=== PATIENT | male | born 1940 | race Caucasian/White ===

== ENCOUNTER 2017-11-03 17:49 | Inpatient (IN) | payer MEDICARE, OTHER ==
[2017-11-03] MEDS: FAMOTIDINE 20 MG INJ IV (01:00)
[2017-11-03] MEDS: PROPOFOL 100 ML IV ×2 (01:00→18:23)
[~2017-11-03 17:49] MED LIST: ETOMIDATE 20 MG INJ; SUCCINYLCHOLINE CHLORIDE 100 MG/5 ML SYG IV
[2017-11-03 18:11] LABS: ADD MAN DIFF? NO
[2017-11-03 18:16] LABS: ABNORMAL IP MESSAGE 1; BASOPHILS % 0.2 % (0.0-2.0); HEMATOCRIT 40.4 % (42.0-52.0); HEMOGLOBIN 14.3 g/dl (14.0-18.0); LYMPHOCYTES % 4.4 % (15.0-51.0); MEAN CORPUSCULAR HEMOGLOBIN 30.6 pg (29.0-33.0); MEAN CORPUSCULAR HGB CONC 35.4 g/dl (32.0-37.0); MEAN CORPUSCULAR VOLUME 86.5 fl (82.0-101.0); MEAN PLATELET VOLUME 9.5 fl (7.4-10.4); MONOCYTE # 1.3 10^3/ul (0.3-0.9); MONOCYTES % 5.7 % (0.0-11.0); NEUTROPHIL # 20.6 10^3/ul (1.6-7.5); PLATELET COUNT 341 10^3/UL (140-415); POSITIVE DIFF @See below; RED BLOOD COUNT 4.67 10^6/ul (4.70-6.10); RED CELL DISTRIBUTION WIDTH 12.9 % (11.5-14.5)
[2017-11-03 18:16] LABS: WHITE BLOOD COUNT 23.2 10^3/ul (4.8-10.8)
[2017-11-03] MEDS: MIDAZOLAM (DRIP) 50 mg/50 mL 50 ML IV (18:22)
[2017-11-03] MEDS: SODIUM CHLORIDE 0.9% 1L BAG IV* (18:23)
[2017-11-03 18:29] LABS: ADD UMIC YES; UR ASCORBIC ACID NEGATIVE (NEGATIVE); UR BACTERIA MODERATE /HPF (NONE SEEN); UR BILIRUBIN (Dip) NEGATIVE (NEGATIVE); UR BLOOD (Dip) 1+ mg/dL (NEGATIVE); UR CLARITY TURBID (CLEAR); UR COLOR AMBER (YELLOW); UR GLUCOSE (Dip) 1+ mg/dL (NEGATIVE); UR KETONES (Dip) TRACE mg/dL (NEGATIVE); UR LEUKOCYTE ESTERASE (Dip) 2+ Leu/ul (NEGATIVE); UR NITRITE (Dip) POSITIVE (NEGATIVE); UR RBC > 182 /HPF (0-5); UR SPECIFIC GRAVITY (Dip) 1.011 (1.003-1.030); UR TOTAL PROTEIN (Dip) 2+ mg/dl (NEGATIVE); UR UROBILINOGEN (Dip) NEGATIVE (NEGATIVE); UR WBC > 182 /HPF (0-5)
[2017-11-03 18:30] LABS: INR 1.09; PARTIAL THROMBOPLASTIN TIME 27.9 Sec (23.0-35.0); PROTIME 14.3 Sec (11.9-14.9); PT RATIO 1.1
[2017-11-03] MEDS: LORAZEPAM 2 MG INJ IV (18:30)
[2017-11-03] MEDS: ACETAMINOPHEN 650 MG SUPP PR (18:39)
[2017-11-03] MEDS: CEFTRIAXONE 1 GM/50 ML (PMX) 50 ML IVPB (18:42)
[2017-11-03 18:47] LABS: ANION GAP 17 (8-16); BLOOD UREA NITROGEN 29 mg/dl (7-20); CARBON DIOXIDE 23 mmol/L (21-31); CHLORIDE 105 mmol/L (97-110); CREATININE 1.26 mg/dl (0.61-1.24); GLUCOSE 236 mg/dl (70-220); LIPASE 297 U/L (23-300); POTASSIUM 3.5 mmol/L (3.5-5.1); SODIUM 141 mmol/L (135-144)
[2017-11-03 18:49] LABS: TROPONIN-I 0.045 ng/ml (0.000-0.120)
[2017-11-03 18:55] LABS: LACTIC ACID 3.2 mmol/L (0.5-2.0)
[2017-11-03 19:21] LABS: AADO2 Arterial 289.7 mmHg (7.0-24.0); Allen Test ACCEPTAB; Arterial Base Excess -2.3 mmol/L (-3.0-3); Arterial Blood Gas Oxygen Sat 99.3 mmHG (95.0-100.0); Arterial COHb 0.3 % (0.0-3.0); Arterial Fraction of Oxyhgb 98.7 % (93.0-99.0); Arterial HCO3 18.8 mmol/L (22.0-26.0); Arterial MetHb 0.3 % (0.0-1.5); Arterial Total Hemglobin 13.8 g/dl (12.0-18.0); Arterial pCO2 23.6 mmhg (35-45); MODE VENT - AC; Site Right Radial
[2017-11-03] MEDS ORDERED: LORAZEPAM 2 MG INJ IV (19:30)
[2017-11-03] MEDS ORDERED: NACL 0.9% 3 ML SYG IV (19:30)
[2017-11-03] MEDS ORDERED: VANCOMYCIN IV PER PHARMACY XX (19:30)
[2017-11-03] MEDS ORDERED: ONDANSETRON 4 MG INJ IV (19:30)
[2017-11-03] MEDS ORDERED: HYDROCODONE/APAP (5/325) TAB PO (19:30)
[2017-11-03] MEDS ORDERED: morphine 2 MG INJ IV (19:30)
[2017-11-03] MEDS: VANCOMYCIN 1 GM (PMX) 250 ML IVPB (19:50)
[2017-11-03] MEDS: INSULIN ASPART [NOVOLOG] 3 ML PEN SC (21:00)
[2017-11-03 21:23] LABS: LACTIC ACID 4.7 mmol/L (0.5-2.0)
[2017-11-03] MEDS ORDERED: DEXTROSE 50% 50 ML SYRINGE IV ×2 (21:30)
[2017-11-03] MEDS ORDERED: GLUCOSE GEL 15 GRAM TUBE BUCCAL (21:30)
[2017-11-03] MEDS ORDERED: GLUCAGON 1 MG INJ IM (21:30)
[2017-11-03] MEDS ORDERED: GLUCOSE GEL 15 GRAM TUBE PO ×2 (21:30)
[2017-11-03] MEDS: VANCOMYCIN 1.25 GM in SOD CHLORIDE 0.9% 250 ML IVPB ×2 (22:43→23:04)
[2017-11-03] MEDS: NORepinephrine 8MG/250 ML (PMX 250 ML IV (23:09)
[2017-11-03 23:30] LABS: LACTIC ACID 1.8 mmol/L (0.5-2.0)
[2017-11-03] MEDS: SOD CHLORIDE 0.9% 1,000 ML IV (23:58)
[2017-11-04] MEDS: PIPER-TAZO 3.375 GM IV (PMX) 100 ML IVPB ×4 (01:26→17:51)
[2017-11-04] MEDS: PROPOFOL 100 ML IV ×2 (01:28→09:03)
[2017-11-04] MEDS ORDERED: ACCU-CHEK XX (02:00)
[2017-11-04] MEDS: VANCOMYCIN 500MG/NS (PMX) 100 ML IVPB (02:05)
[2017-11-04] MEDS: INSULIN ASPART [NOVOLOG] 3 ML PEN SC ×6 (02:10→21:00)
[2017-11-04] MEDS: FENTAnyl (DRIP) 1000 mcg/100mL 100 ML IV (02:26)
[2017-11-04 05:14] LABS: ADD MAN DIFF? NO
[2017-11-04 05:19] LABS: WHITE BLOOD COUNT 22.4 10^3/ul (4.8-10.8)
[2017-11-04 05:19] LABS: ABNORMAL IP MESSAGE 1; BASOPHIL # 0.1 10^3/ul (0.0-0.1); BASOPHILS % 0.2 % (0.0-2.0); HEMATOCRIT 31.9 % (42.0-52.0); HEMOGLOBIN 10.8 g/dl (14.0-18.0); LYMPHOCYTES # 2.6 10^3/ul (0.8-2.9); LYMPHOCYTES % 11.8 % (15.0-51.0); MEAN CORPUSCULAR HEMOGLOBIN 30.5 pg (29.0-33.0); MEAN CORPUSCULAR HGB CONC 33.9 g/dl (32.0-37.0); MEAN CORPUSCULAR VOLUME 90.1 fl (82.0-101.0); MEAN PLATELET VOLUME 9.7 fl (7.4-10.4); MONOCYTE # 1.7 10^3/ul (0.3-0.9); MONOCYTES % 7.4 % (0.0-11.0); NEUTROPHIL # 17.9 10^3/ul (1.6-7.5); NEUTROPHILS % 79.9 % (39.0-77.0); PLATELET COUNT 267 10^3/UL (140-415); POSITIVE DIFF @See below; RED BLOOD COUNT 3.54 10^6/ul (4.70-6.10); RED CELL DISTRIBUTION WIDTH 13.6 % (11.5-14.5)
[2017-11-04 05:35] LABS: HEMOGLOBIN A1C 6.7 % (0-5.9)
[2017-11-04 05:44] LABS: ALANINE AMINOTRANSFERASE 55 IU/L (13-69); ALBUMIN 2.7 g/dl (3.3-4.9); ALBUMIN/GLOBULIN RATIO 0.87; ALKALINE PHOSPHATASE 33 IU/L (42-121); ANION GAP 14 (8-16); ASPARTATE AMINO TRANSFERASE 34 IU/L (15-46); BILIRUBIN,INDIRECT 0.5 mg/dl (0-1.1); BILIRUBIN,TOTAL 0.5 mg/dl (0.2-1.3); BLOOD UREA NITROGEN 27 mg/dl (7-20); CALCIUM 7.9 mg/dl (8.4-10.2); CARBON DIOXIDE 20 mmol/L (21-31); CHLORIDE 112 mmol/L (97-110); CREATININE 1.28 mg/dl (0.61-1.24); GLUCOSE 223 mg/dl (70-220); MAGNESIUM 1.2 mg/dl (1.7-2.5); POTASSIUM 3.1 mmol/L (3.5-5.1); SODIUM 143 mmol/L (135-144); TOTAL PROTEIN 5.8 g/dl (6.1-8.1)
[2017-11-04] MEDS: POTASSIUM CHLORIDE 100 ML IVPB (06:36)
[2017-11-04] MEDS: MAGNESIUM SULFATE 4 GM/100 ML 100 ML IVPB (07:35)
[2017-11-04 08:59] LABS: AADO2 Arterial 98.4 mmHg (7.0-24.0); Allen Test ACCEPTAB; Arterial Base Excess -5.7 mmol/L (-3.0-3); Arterial Blood Gas Oxygen Sat 97.7 mmHG (95.0-100.0); Arterial COHb 0.3 % (0.0-3.0); Arterial Fraction of Oxyhgb 97.2 % (93.0-99.0); Arterial HCO3 18.7 mmol/L (22.0-26.0); Arterial MetHb 0.2 % (0.0-1.5); Arterial pCO2 33.1 mmhg (35-45); MODE VENT - AC; Site Right Radial
[2017-11-04] MEDS: RIVAROXABAN 15 MG TABLET PO ×2 (09:03→16:39)
[2017-11-04] MEDS: FAMOTIDINE 20 MG INJ IV ×2 (09:03→21:07)
[2017-11-04] MEDS: SOD CHLORIDE 0.9% 1,000 ML IV ×2 (09:26→17:53)
[2017-11-04] MEDS: DUTASTERIDE 0.5 MG CAP PO ×2 (10:00→11:08)
[2017-11-04] MEDS: DIGOXIN 0.25 MG TAB PO (12:49)
[2017-11-04] MEDS: ENTACAPONE 200 MG TAB PO ×2 (12:49→21:07)
[2017-11-04] MEDS ORDERED: PROPRANOLOL 20 MG TAB PO (21:00)
[2017-11-04] MEDS: TAMSULOSIN (SR) 0.4 MG CAP PO (21:07)
[2017-11-04] MEDS: PRAMIPEXOLE 0.125 MG TAB PO (21:07)
[2017-11-05] MEDS: PIPER-TAZO 3.375 GM IV (PMX) 100 ML IVPB ×4 (00:11→17:48)
[2017-11-05] MEDS: FENTAnyl (DRIP) 1000 mcg/100mL 100 ML IV ×2 (00:12→11:57)
[2017-11-05] MEDS: INSULIN ASPART [NOVOLOG] 3 ML PEN SC ×6 (00:24→20:59)
[2017-11-05] MEDS: ACETAMINOPHEN 325 MG TAB PO (00:56)
[2017-11-05 05:05] LABS: AADO2 Arterial 116.5 mmHg (7.0-24.0); Allen Test ACCEPTAB; Arterial Base Excess -3.8 mmol/L (-3.0-3); Arterial Blood Gas Oxygen Sat 97.1 mmHG (95.0-100.0); Arterial COHb 0.3 % (0.0-3.0); Arterial Fraction of Oxyhgb 96.6 % (93.0-99.0); Arterial HCO3 20.1 mmol/L (22.0-26.0); Arterial MetHb 0.2 % (0.0-1.5); MODE VENT - AC; Site Left Radial
[2017-11-05 05:08] LABS: ADD MAN DIFF? NO
[2017-11-05 05:17] LABS: WHITE BLOOD COUNT 16.6 10^3/ul (4.8-10.8)
[2017-11-05 05:17] LABS: BASOPHILS % 0.2 % (0.0-2.0); EOSINOPHILS # 0.1 10^3/ul (0.0-0.5); EOSINOPHILS % 0.7 % (0.0-7.0); HEMATOCRIT 28.7 % (42.0-52.0); HEMOGLOBIN 9.8 g/dl (14.0-18.0); LYMPHOCYTES % 12.1 % (15.0-51.0); MEAN CORPUSCULAR HEMOGLOBIN 30.4 pg (29.0-33.0); MEAN CORPUSCULAR HGB CONC 34.1 g/dl (32.0-37.0); MEAN CORPUSCULAR VOLUME 89.1 fl (82.0-101.0); MEAN PLATELET VOLUME 9.6 fl (7.4-10.4); MONOCYTE # 1.3 10^3/ul (0.3-0.9); MONOCYTES % 7.7 % (0.0-11.0); NEUTROPHILS % 78.5 % (39.0-77.0); PLATELET COUNT 231 10^3/UL (140-415); RED BLOOD COUNT 3.22 10^6/ul (4.70-6.10); RED CELL DISTRIBUTION WIDTH 14.2 % (11.5-14.5)
[2017-11-05 05:33] LABS: LACTIC ACID 0.9 mmol/L (0.5-2.0)
[2017-11-05 05:38] LABS: ANION GAP 11 (8-16); BLOOD UREA NITROGEN 21 mg/dl (7-20); CALCIUM 7.6 mg/dl (8.4-10.2); CARBON DIOXIDE 21 mmol/L (21-31); CHLORIDE 115 mmol/L (97-110); CREATININE 1.02 mg/dl (0.61-1.24); GLUCOSE 122 mg/dl (70-220); MAGNESIUM 2.1 mg/dl (1.7-2.5); PHOSPHORUS 2.4 mg/dl (2.5-4.9); SODIUM 144 mmol/L (135-144)
[2017-11-05 05:42] LABS: POTASSIUM 2.9 mmol/L (3.5-5.1)
[2017-11-05] MEDS ORDERED: POTASSIUM CHLORIDE 20 MEQ in SOD CHLORIDE 0.9% 1,000 ML IV (05:48)
[2017-11-05] MEDS: POTASSIUM CHLORIDE 50 ML IVPB ×2 (06:31→08:12)
[2017-11-05] MEDS: NS + KCL 20 MEQ 1,000 ML IV ×2 (07:05→23:50)
[2017-11-05] MEDS: FAMOTIDINE 20 MG INJ IV ×2 (08:51→21:06)
[2017-11-05] MEDS: ENTACAPONE 200 MG TAB PO ×3 (08:51→21:00)
[2017-11-05] MEDS: DUTASTERIDE 0.5 MG CAP PO (08:52)
[2017-11-05] MEDS: RIVAROXABAN 15 MG TABLET PO ×3 (08:52→17:35)
[2017-11-05] MEDS: SODIUM PHOSPHATE 20 MEQ in SOD CHLORIDE 0.9% 250 ML IVPB (09:44)
[2017-11-05] MEDS: DIGOXIN 0.25 MG TAB PO (12:58)
[2017-11-05 20:27] LABS: AADO2 Arterial 149.9 mmHg (7.0-24.0); Allen Test ACCEPTAB; Arterial Base Excess -3.9 mmol/L (-3.0-3); Arterial Blood Gas Oxygen Sat 97.1 mmHG (95.0-100.0); Arterial COHb 0.3 % (0.0-3.0); Arterial Fraction of Oxyhgb 96.6 % (93.0-99.0); Arterial MetHb 0.2 % (0.0-1.5); Arterial Total Hemglobin 10.8 g/dl (12.0-18.0); Arterial pCO2 27.8 mmhg (35-45); MODE NASAL CANNULA; Site Right Radial
[2017-11-05] MEDS: PRAMIPEXOLE 0.125 MG TAB PO (21:00)
[2017-11-05] MEDS: TAMSULOSIN (SR) 0.4 MG CAP PO (21:00)
[2017-11-06] MEDS: PIPER-TAZO 3.375 GM IV (PMX) 100 ML IVPB ×4 (00:38→17:21)
[2017-11-06] MEDS: INSULIN ASPART [NOVOLOG] 3 ML PEN SC ×6 (00:55→22:22)
[2017-11-06 05:23] LABS: ADD MAN DIFF? NO
[2017-11-06 05:26] LABS: BASOPHILS % 0.2 % (0.0-2.0); EOSINOPHILS # 0.1 10^3/ul (0.0-0.5); EOSINOPHILS % 1.3 % (0.0-7.0); HEMOGLOBIN 8.8 g/dl (14.0-18.0); LYMPHOCYTES # 1.4 10^3/ul (0.8-2.9); LYMPHOCYTES % 12.6 % (15.0-51.0); MEAN CORPUSCULAR HEMOGLOBIN 30.3 pg (29.0-33.0); MEAN CORPUSCULAR HGB CONC 33.8 g/dl (32.0-37.0); MEAN CORPUSCULAR VOLUME 89.7 fl (82.0-101.0); MEAN PLATELET VOLUME 9.4 fl (7.4-10.4); MONOCYTE # 0.9 10^3/ul (0.3-0.9); MONOCYTES % 8.3 % (0.0-11.0); NEUTROPHIL # 8.4 10^3/ul (1.6-7.5); NEUTROPHILS % 76.9 % (39.0-77.0); PLATELET COUNT 220 10^3/UL (140-415); RED CELL DISTRIBUTION WIDTH 13.9 % (11.5-14.5)
[2017-11-06 05:48] LABS: LACTIC ACID 1.3 mmol/L (0.5-2.0)
[2017-11-06 06:06] LABS: ANION GAP 9 (8-16); BLOOD UREA NITROGEN 13 mg/dl (7-20); CALCIUM 7.8 mg/dl (8.4-10.2); CARBON DIOXIDE 24 mmol/L (21-31); CHLORIDE 115 mmol/L (97-110); CREATININE 0.82 mg/dl (0.61-1.24); GLUCOSE 170 mg/dl (70-220); POTASSIUM 3.3 mmol/L (3.5-5.1); SODIUM 145 mmol/L (135-144)
[2017-11-06 09:17] LABS: AADO2 Arterial 65.5 mmHg (7.0-24.0); Allen Test ACCEPTAB; Arterial Base Excess -0.7 mmol/L (-3.0-3); Arterial Blood Gas Oxygen Sat 94.4 mmHG (95.0-100.0); Arterial COHb 0.3 % (0.0-3.0); Arterial HCO3 22.3 mmol/L (22.0-26.0); Arterial MetHb 0.1 % (0.0-1.5); Arterial Total Hemglobin 10.6 g/dl (12.0-18.0); Arterial pCO2 31.1 mmhg (35-45); MODE NASAL CANNULA; Site Left Radial
[2017-11-06] MEDS: DUTASTERIDE 0.5 MG CAP PO (09:46)
[2017-11-06] MEDS: ENTACAPONE 200 MG TAB PO ×3 (09:46→20:45)
[2017-11-06] MEDS: RIVAROXABAN 15 MG TABLET PO ×2 (09:47→17:21)
[2017-11-06] MEDS: FAMOTIDINE 20 MG INJ IV ×2 (09:47→20:47)
[2017-11-06] MEDS: NS + KCL 20 MEQ 1,000 ML IV ×2 (10:51→17:23)
[2017-11-06] MEDS: DIGOXIN 0.25 MG TAB PO (12:17)
[2017-11-06] MEDS: TAMSULOSIN (SR) 0.4 MG CAP PO (20:45)
[2017-11-06] MEDS: PRAMIPEXOLE 0.125 MG TAB PO (20:45)
[2017-11-06] MEDS: INSULIN GLARGINE [LANTus] (100 UNITS/ML) SYG SC (20:48)
[2017-11-06] MEDS: POTASSIUM CHLORIDE 20 MEQ in SOD CHLORIDE 0.9% 1,000 ML IV (21:00)
[2017-11-07] MEDS: PIPER-TAZO 3.375 GM IV (PMX) 100 ML IVPB ×3 (01:22→13:32)
[2017-11-07] MEDS: INSULIN ASPART [NOVOLOG] 3 ML PEN SC ×6 (01:31→20:45)
[2017-11-07 04:49] LABS: ADD MAN DIFF? NO
[2017-11-07 04:58] LABS: BASOPHILS % 0.2 % (0.0-2.0); EOSINOPHILS # 0.1 10^3/ul (0.0-0.5); EOSINOPHILS % 1.2 % (0.0-7.0); HEMATOCRIT 25.5 % (42.0-52.0); HEMOGLOBIN 8.7 g/dl (14.0-18.0); LYMPHOCYTES # 1.6 10^3/ul (0.8-2.9); LYMPHOCYTES % 14.2 % (15.0-51.0); MEAN CORPUSCULAR HEMOGLOBIN 30.2 pg (29.0-33.0); MEAN CORPUSCULAR HGB CONC 34.1 g/dl (32.0-37.0); MEAN CORPUSCULAR VOLUME 88.5 fl (82.0-101.0); MEAN PLATELET VOLUME 9.4 fl (7.4-10.4); MONOCYTES % 9.5 % (0.0-11.0); NEUTROPHIL # 8.1 10^3/ul (1.6-7.5); NEUTROPHILS % 73.9 % (39.0-77.0); PLATELET COUNT 247 10^3/UL (140-415); RED BLOOD COUNT 2.88 10^6/ul (4.70-6.10); RED CELL DISTRIBUTION WIDTH 13.2 % (11.5-14.5)
[2017-11-07 04:58] LABS: WHITE BLOOD COUNT 10.9 10^3/ul (4.8-10.8)
[2017-11-07 05:28] LABS: ANION GAP 12 (8-16); BLOOD UREA NITROGEN 8 mg/dl (7-20); CALCIUM 7.9 mg/dl (8.4-10.2); CARBON DIOXIDE 24 mmol/L (21-31); CHLORIDE 113 mmol/L (97-110); CREATININE 0.76 mg/dl (0.61-1.24); GLUCOSE 162 mg/dl (70-220); POTASSIUM 3.1 mmol/L (3.5-5.1); SODIUM 146 mmol/L (135-144)
[2017-11-07] MEDS: DUTASTERIDE 0.5 MG CAP PO ×2 (09:00→09:31)
[2017-11-07] MEDS: POTASSIUM CHLORIDE 20 MEQ POWDER FOR ORAL SOLN PO (09:29)
[2017-11-07] MEDS: FAMOTIDINE 20 MG INJ IV ×2 (09:30→20:46)
[2017-11-07] MEDS: ENTACAPONE 200 MG TAB PO ×3 (09:31→20:45)
[2017-11-07] MEDS: SENNA TAB PO ×2 (09:51→20:45)
[2017-11-07 10:27] LABS: IRON 39 ug/dl (35-150)
[2017-11-07 10:37] LABS: % IRON SATURATION 21 % SAT (22-52); TOTAL IRON BINDING CAPACITY 184 ug/dl (241-421)
[2017-11-07] MEDS: RIVAROXABAN 15 MG TABLET PO ×2 (11:39→18:01)
[2017-11-07] MEDS: DIGOXIN 0.25 MG TAB PO (13:00)
[2017-11-07] MEDS: LEVOFLOXACIN 750MG/D5W (PMX) 150 ML IVPB (17:19)
[2017-11-07] MEDS: POTASSIUM CHLORIDE 20 MEQ in SOD CHLORIDE 0.9% 1,000 ML IV (17:19)
[2017-11-07 18:48] LABS: FOLATE 4.4 ng/ml (2.8-20.0)
[2017-11-07] MEDS: INSULIN GLARGINE [LANTus] (100 UNITS/ML) SYG SC (20:44)
[2017-11-07] MEDS: TAMSULOSIN (SR) 0.4 MG CAP PO (20:45)
[2017-11-07] MEDS: PRAMIPEXOLE 0.125 MG TAB PO (20:45)
[2017-11-08] MEDS: POTASSIUM CHLORIDE 20 MEQ in SOD CHLORIDE 0.9% 1,000 ML IV (01:52)
[2017-11-08] MEDS: INSULIN ASPART [NOVOLOG] 3 ML PEN SC ×3 (02:45→09:32)
[2017-11-08 06:16] LABS: ADD MAN DIFF? NO
[2017-11-08 06:29] LABS: WHITE BLOOD COUNT 11.1 10^3/ul (4.8-10.8)
[2017-11-08 06:29] LABS: BASOPHILS % 0.4 % (0.0-2.0); EOSINOPHILS # 0.2 10^3/ul (0.0-0.5); EOSINOPHILS % 1.7 % (0.0-7.0); HEMATOCRIT 27.5 % (42.0-52.0); HEMOGLOBIN 9.3 g/dl (14.0-18.0); LYMPHOCYTES # 1.5 10^3/ul (0.8-2.9); LYMPHOCYTES % 13.5 % (15.0-51.0); MEAN CORPUSCULAR HEMOGLOBIN 30.2 pg (29.0-33.0); MEAN CORPUSCULAR HGB CONC 33.8 g/dl (32.0-37.0); MEAN CORPUSCULAR VOLUME 89.3 fl (82.0-101.0); MEAN PLATELET VOLUME 9.5 fl (7.4-10.4); MONOCYTES % 8.7 % (0.0-11.0); NEUTROPHIL # 8.3 10^3/ul (1.6-7.5); NEUTROPHILS % 74.7 % (39.0-77.0); PLATELET COUNT 263 10^3/UL (140-415); RED BLOOD COUNT 3.08 10^6/ul (4.70-6.10); RED CELL DISTRIBUTION WIDTH 13.4 % (11.5-14.5)
[2017-11-08 07:37] LABS: ANION GAP 9 (8-16); BLOOD UREA NITROGEN 7 mg/dl (7-20); CALCIUM 7.9 mg/dl (8.4-10.2); CARBON DIOXIDE 26 mmol/L (21-31); CHLORIDE 112 mmol/L (97-110); CREATININE 0.66 mg/dl (0.61-1.24); GLUCOSE 136 mg/dl (70-220); POTASSIUM 3.1 mmol/L (3.5-5.1); SODIUM 144 mmol/L (135-144)
[2017-11-08] MEDS: ENTACAPONE 200 MG TAB PO (09:05)
[2017-11-08] MEDS: FAMOTIDINE 20 MG INJ IV (09:05)
[2017-11-08] MEDS: SENNA TAB PO (09:05)
[2017-11-08] MEDS: DUTASTERIDE 0.5 MG CAP PO (09:05)
[2017-11-08] MEDS: RIVAROXABAN 15 MG TABLET PO (10:05)
== END 2017-11-08 13:10 | disposition home health service (06) | DRG 871 ==
LOC: 6WM 11-07 23:04 → ICU 19:10 → E/R 17:49
PROC: 5A1945Z Respiratory Ventilation, 24-96 Consecutive Hours (ICD-10-PCS; principal; 2017-11-03)
PROC: 05H533Z Insertion of Infusion Device into Right Subclavian Vein, Percutaneous Approach (ICD-10-PCS; 2017-11-03)
PROC: 0BH17EZ Insertion of Endotracheal Airway into Trachea, Via Natural or Artificial Opening (ICD-10-PCS; 2017-11-03)
DX: A41.9 Sepsis, unspecified organism (principal); R65.21 Severe sepsis with septic shock; J96.01 Acute respiratory failure with hypoxia; J18.9 Pneumonia, unspecified organism; G93.41 Metabolic encephalopathy; J96.02 Acute respiratory failure with hypercapnia; N17.9 Acute kidney failure, unspecified; N39.0 Urinary tract infection, site not specified; I12.9 Hypertensive chronic kidney disease with stage 1 through stage 4 chronic kidney disease, or unspecified chronic kidney disease; N18.9 Chronic kidney disease, unspecified; G20 Parkinson's disease; F02.80 Dementia in other diseases classified elsewhere, unspecified severity, without behavioral disturbance, psychotic disturbance, mood disturbance, and anxiety; I48.91 Unspecified atrial fibrillation; N13.9 Obstructive and reflux uropathy, unspecified; B96.1 Klebsiella pneumoniae [K. pneumoniae] as the cause of diseases classified elsewhere; N40.0 Benign prostatic hyperplasia without lower urinary tract symptoms; D64.9 Anemia, unspecified
CPT/HCPCS: 31500; 36415; 36600; 70450; 71045; 80048; 80053; 81001; 82607; 82728; 82746; 82803; 82962; 83036; 83540; 83605; 83690; 83735; 84100; 84443; 84484; 85025; 85610; 85730; 87040; 87070; 87081; 87086; 92610; 93005; 94002; 94003; 94770; 96374; 97110; 97162; 97166; 97530; 97535; 99291-25

== ENCOUNTER 2018-01-08 17:21 | Inpatient (IN) | payer MEDICARE, OTHER ==
[2018-01-08 17:54] LABS: ABNORMAL IP MESSAGE 1; HEMATOCRIT 37.2 % (42.0-52.0); HEMOGLOBIN 12.4 g/dl (14.0-18.0); MEAN CORPUSCULAR HEMOGLOBIN 29.3 pg (29.0-33.0); MEAN CORPUSCULAR HGB CONC 33.3 g/dl (32.0-37.0); MEAN CORPUSCULAR VOLUME 87.9 fl (82.0-101.0); MEAN PLATELET VOLUME 9.5 fl (7.4-10.4); PLATELET COUNT 361 10^3/UL (140-415); POSITIVE DIFF @See below; RED BLOOD COUNT 4.23 10^6/ul (4.70-6.10); RED CELL DISTRIBUTION WIDTH 14.2 % (11.5-14.5)
[2018-01-08 17:54] LABS: WHITE BLOOD COUNT 10.9 10^3/ul (4.8-10.8)
[2018-01-08 17:55] LABS: ADD MAN DIFF? YES
[2018-01-08 18:09] LABS: ALANINE AMINOTRANSFERASE 15 IU/L (13-69); ALBUMIN 4.3 g/dl (3.3-4.9); ALBUMIN/GLOBULIN RATIO 1.19; ALKALINE PHOSPHATASE 45 IU/L (42-121); ANION GAP 15 (5-13); ASPARTATE AMINO TRANSFERASE 30 IU/L (15-46); BILIRUBIN,INDIRECT 0.4 mg/dl (0-1.1); BILIRUBIN,TOTAL 0.4 mg/dl (0.2-1.3); BLOOD UREA NITROGEN 28 mg/dl (7-20); CALCIUM 10.2 mg/dl (8.4-10.2); CARBON DIOXIDE 22 mmol/L (21-31); CHLORIDE 104 mmol/L (97-110); CREATININE 1.06 mg/dl (0.61-1.24); GLUCOSE 295 mg/dl (70-220); POTASSIUM 3.7 mmol/L (3.5-5.1); SODIUM 141 mmol/L (135-144); TOTAL PROTEIN 7.9 g/dl (6.1-8.1)
[2018-01-08] MEDS: SODIUM CHLORIDE 0.9% 1L BAG IV* ×2 (18:12→19:02)
[2018-01-08] MEDS: CEFEPIME 2GM/50 ML (PMX) 50 ML IVPB (18:12)
[2018-01-08 18:15] LABS: INR 1.15; PROTIME 14.9 Sec (11.9-14.9); PT RATIO 1.2
[2018-01-08 18:16] LABS: PARTIAL THROMBOPLASTIN TIME 29.7 Sec (23.0-35.0)
[2018-01-08 18:29] LABS: ADD UMIC YES; UR ASCORBIC ACID NEGATIVE (NEGATIVE); UR BACTERIA MODERATE /HPF (NONE SEEN); UR BILIRUBIN (Dip) NEGATIVE (NEGATIVE); UR BLOOD (Dip) 2+ mg/dL (NEGATIVE); UR CLARITY TURBID (CLEAR); UR COLOR YELLOW (YELLOW); UR GLUCOSE (Dip) 3+ mg/dL (NEGATIVE); UR KETONES (Dip) NEGATIVE (NEGATIVE); UR LEUKOCYTE ESTERASE (Dip) 3+ Leu/ul (NEGATIVE); UR NITRITE (Dip) POSITIVE (NEGATIVE); UR NONSQUAMOUS EPITHELIAL CELL 4 /HPF (NONE SEEN); UR RBC 74 /HPF (0-5); UR SPECIFIC GRAVITY (Dip) 1.009 (1.003-1.030); UR TOTAL PROTEIN (Dip) 2+ mg/dl (NEGATIVE); UR UROBILINOGEN (Dip) NEGATIVE (NEGATIVE); UR WBC > 182 /HPF (0-5)
[2018-01-08 18:53] LABS: ANISOCYTOSIS 1+ (0-0); BAND NEUTROPHILS #M 1.7 10^3/ul (0.0-0.6); BAND NEUTROPHILS % (M) 16 % (0-4); BURR CELLS 1+ (0-0); ERYTHROBLAST% (NRBC) (M) 1 % (0-0); GIANT THROMBO% (M) 3 % (0-0); LYMPHOCYTES #M 0.5 10^3/ul (0.8-2.9); LYMPHOCYTES % (M) 5 % (15-51); MICROCYTOSIS 1+ (0-0); MONOCYTE #M 1.5 10^3/ul (0.3-0.9); MONOCYTES % (M) 14 % (0-11); PLATELET ESTIMATE NORMAL; POIKILOCYTOSIS 1+ (0-0); SEG NEUT #M 7.3 10^3/ul (1.6-7.5); SEGMENTED NEUTROPHILS (M) % 65 % (39-77); SMUDGE%M 27 % (0-0)
[2018-01-08] MEDS: VANCOMYCIN 1 GM (PMX) 250 ML IVPB (19:03)
[2018-01-08 21:54] LABS: LACTIC ACID 4.7 mmol/L (0.5-2.0)
[2018-01-08] MEDS ORDERED: ONDANSETRON 4 MG INJ IV (23:30)
[2018-01-08] MEDS ORDERED: ALBUTEROL/IPRATROPIUM (NEB) 3 ML AMP HHN (23:30)
[2018-01-08] MEDS ORDERED: NITROGLYCERIN (SL) 0.4 MG TAB SL (23:30)
[2018-01-08] MEDS ORDERED: NACL 0.9% 3 ML SYG IV (23:30)
[2018-01-09] MEDS ORDERED: GLUCAGON 1 MG INJ IM (00:30)
[2018-01-09] MEDS ORDERED: GLUCOSE GEL 15 GRAM TUBE BUCCAL (00:30)
[2018-01-09] MEDS ORDERED: DEXTROSE 50% 50 ML SYRINGE IV ×2 (00:30)
[2018-01-09] MEDS ORDERED: GLUCOSE GEL 15 GRAM TUBE PO ×2 (00:30)
[2018-01-09 00:56] LABS: CREATINE KINASE 43 IU/L (23-200)
[2018-01-09 01:09] LABS: CK INDEX 3.3; CK-MB 1.44 ng/ml (0.0-2.4)
[2018-01-09 01:10] LABS: TROPONIN-I 0.937 ng/ml (0.000-0.120)
[2018-01-09] MEDS: SOD CHLORIDE 0.9% 1,000 ML IV ×3 (01:42→20:44)
[2018-01-09] MEDS: INSULIN ASPART [NOVOLOG] 3 ML PEN SC ×6 (01:58→20:48)
[2018-01-09] MEDS: ENOXAPARIN 80 MG/0.8 ML SYG SC (01:59)
[2018-01-09] MEDS: ACETAMINOPHEN 325 MG TAB PO (02:00)
[2018-01-09] MEDS: ACCU-CHEK XX (02:00)
[2018-01-09 05:45] LABS: ADD MAN DIFF? NO
[2018-01-09 05:53] LABS: ABNORMAL IP MESSAGE 1; BASOPHILS % 0.2 % (0.0-2.0); HEMATOCRIT 32.9 % (42.0-52.0); HEMOGLOBIN 10.8 g/dl (14.0-18.0); LYMPHOCYTES # 1.3 10^3/ul (0.8-2.9); LYMPHOCYTES % 13.2 % (15.0-51.0); MEAN CORPUSCULAR HEMOGLOBIN 29.5 pg (29.0-33.0); MEAN CORPUSCULAR HGB CONC 32.8 g/dl (32.0-37.0); MEAN CORPUSCULAR VOLUME 89.9 fl (82.0-101.0); MEAN PLATELET VOLUME 9.7 fl (7.4-10.4); MONOCYTE # 1.5 10^3/ul (0.3-0.9); MONOCYTES % 15.5 % (0.0-11.0); NEUTROPHIL # 6.9 10^3/ul (1.6-7.5); NEUTROPHILS % 70.6 % (39.0-77.0); PLATELET COUNT 288 10^3/UL (140-415); POSITIVE DIFF @See below; RED BLOOD COUNT 3.66 10^6/ul (4.70-6.10); RED CELL DISTRIBUTION WIDTH 14.6 % (11.5-14.5)
[2018-01-09 05:53] LABS: WHITE BLOOD COUNT 9.8 10^3/ul (4.8-10.8)
[2018-01-09 06:07] LABS: CREATINE KINASE 38 IU/L (23-200)
[2018-01-09 06:21] LABS: CK INDEX 2.9; CK-MB 1.11 ng/ml (0.0-2.4)
[2018-01-09 06:58] LABS: ALANINE AMINOTRANSFERASE 28 IU/L (13-69); ALBUMIN 3.4 g/dl (3.3-4.9); ALBUMIN/GLOBULIN RATIO 1.21; ALKALINE PHOSPHATASE 40 IU/L (42-121); ANION GAP 9 (5-13); ASPARTATE AMINO TRANSFERASE 20 IU/L (15-46); BILIRUBIN,INDIRECT 0.5 mg/dl (0-1.1); BILIRUBIN,TOTAL 0.5 mg/dl (0.2-1.3); BLOOD UREA NITROGEN 26 mg/dl (7-20); CARBON DIOXIDE 27 mmol/L (21-31); CHLORIDE 108 mmol/L (97-110); CREATININE 1.05 mg/dl (0.61-1.24); GLUCOSE 230 mg/dl (70-220); MAGNESIUM 1.5 mg/dl (1.7-2.5); POTASSIUM 3.5 mmol/L (3.5-5.1); SODIUM 144 mmol/L (135-144); TOTAL PROTEIN 6.2 g/dl (6.1-8.1)
[2018-01-09] MEDS: SOD CHLORIDE 0.9% 500 ML IV (06:59)
[2018-01-09] MEDS: RIVAROXABAN 15 MG TABLET PO ×2 (08:00→17:20)
[2018-01-09] MEDS: ENTACAPONE 200 MG TAB PO ×4 (08:54→19:45)
[2018-01-09] MEDS: DUTASTERIDE 0.5 MG CAP PO ×2 (08:54→09:00)
[2018-01-09] MEDS: ASPIRIN 81 MG TAB PO ×2 (08:54→09:00)
[2018-01-09] MEDS: PROPRANOLOL 20 MG TAB PO ×3 (08:55→19:45)
[2018-01-09] MEDS: CEFTRIAXONE 1 GM/50 ML (PMX) 50 ML IVPB ×2 (08:55→20:43)
[2018-01-09 11:32] LABS: DIGOXIN 0.9 ng/ml (1.0-2.0)
[2018-01-09] MEDS ORDERED: [UNRECOGNIZED DRUG - REMARK] XX (12:30)
[2018-01-09] MEDS ORDERED: DIGOXIN 0.25 MG TAB PO (13:00)
[2018-01-09] MEDS: MAGNESIUM SULFATE 2 GM/50 ML 50 ML IVPB (14:07)
[2018-01-09] MEDS: INSULIN GLARGINE [LANTus] (100 UNITS/ML) SYG SC (14:12)
[2018-01-09] MEDS: ASPIRIN 300 MG SUPP PR (16:43)
[2018-01-09] MEDS: ACETAMINOPHEN 650 MG SUPP PR (16:43)
[2018-01-09] MEDS: TAMSULOSIN (SR) 0.4 MG CAP PO (19:45)
[2018-01-09] MEDS: PRAMIPEXOLE 0.125 MG TAB PO (19:46)
[2018-01-09] MEDS: DEXTROSE 5%-0.45% NACL 1,000 ML IV (23:38)
[2018-01-10] MEDS: ACCU-CHEK XX (00:07)
[2018-01-10] MEDS: INSULIN ASPART [NOVOLOG] 3 ML PEN SC ×6 (00:09→21:21)
[2018-01-10] MEDS: METOPROLOL 5 MG INJ IV (01:06)
[2018-01-10 05:31] LABS: ADD MAN DIFF? NO
[2018-01-10 05:33] LABS: BASOPHILS % 0.1 % (0.0-2.0); HEMATOCRIT 31.9 % (42.0-52.0); HEMOGLOBIN 10.6 g/dl (14.0-18.0); LYMPHOCYTES % 11.7 % (15.0-51.0); MEAN CORPUSCULAR HEMOGLOBIN 29.9 pg (29.0-33.0); MEAN CORPUSCULAR HGB CONC 33.2 g/dl (32.0-37.0); MEAN CORPUSCULAR VOLUME 89.9 fl (82.0-101.0); MEAN PLATELET VOLUME 9.5 fl (7.4-10.4); MONOCYTE # 0.9 10^3/ul (0.3-0.9); MONOCYTES % 10.3 % (0.0-11.0); NEUTROPHIL # 6.7 10^3/ul (1.6-7.5); NEUTROPHILS % 76.6 % (39.0-77.0); PLATELET COUNT 270 10^3/UL (140-415); RED BLOOD COUNT 3.55 10^6/ul (4.70-6.10); RED CELL DISTRIBUTION WIDTH 14.3 % (11.5-14.5)
[2018-01-10 05:33] LABS: WHITE BLOOD COUNT 8.7 10^3/ul (4.8-10.8)
[2018-01-10 05:53] LABS: HEMOGLOBIN A1C 6.4 % (0-5.9)
[2018-01-10 05:58] LABS: LACTIC ACID 1.1 mmol/L (0.5-2.0)
[2018-01-10 06:15] LABS: ANION GAP 7 (5-13); BLOOD UREA NITROGEN 22 mg/dl (7-20); CALCIUM 8.4 mg/dl (8.4-10.2); CARBON DIOXIDE 26 mmol/L (21-31); CHLORIDE 113 mmol/L (97-110); CREATININE 0.86 mg/dl (0.61-1.24); GLUCOSE 213 mg/dl (70-220); SODIUM 146 mmol/L (135-144)
[2018-01-10 06:34] LABS: POTASSIUM 2.7 mmol/L (3.5-5.1); THYROID STIMULATING HORMONE 0.996 MIU/L (0.465-4.680)
[2018-01-10 07:09] LABS: FOLATE 8.7 ng/ml (2.8-20.0)
[2018-01-10] MEDS: CEFTRIAXONE 1 GM/50 ML (PMX) 50 ML IVPB ×2 (08:04→21:25)
[2018-01-10] MEDS ORDERED: ASPIRIN 300 MG SUPP PR (09:00)
[2018-01-10] MEDS: ASPIRIN 81 MG TAB PO (09:05)
[2018-01-10] MEDS: DUTASTERIDE 0.5 MG CAP PO (09:05)
[2018-01-10] MEDS: ENTACAPONE 200 MG TAB PO ×3 (09:06→21:25)
[2018-01-10] MEDS: PROPRANOLOL 20 MG TAB PO (09:06)
[2018-01-10] MEDS: POTASSIUM CHLORIDE 100 ML IVPB ×3 (09:10→14:30)
[2018-01-10] MEDS: RIVAROXABAN 15 MG TABLET PO ×2 (09:27→17:46)
[2018-01-10 15:12] LABS: RAPID PLASMA REAGIN NONREACTIVE (NR)
[2018-01-10] MEDS: LOSARTAN 25 MG TAB PO (18:04)
[2018-01-10] MEDS ORDERED: POTASSIUM CHLORIDE 100 ML IVPB (19:30)
[2018-01-10] MEDS: DEXTROSE 5%-0.45% NACL 1,000 ML IV (20:07)
[2018-01-10] MEDS: INSULIN GLARGINE [LANTus] (100 UNITS/ML) SYG SC (21:21)
[2018-01-10] MEDS: PRAMIPEXOLE 0.125 MG TAB PO (21:25)
[2018-01-10] MEDS: TAMSULOSIN (SR) 0.4 MG CAP PO (21:28)
[2018-01-11] MEDS: INSULIN ASPART [NOVOLOG] 3 ML PEN SC ×7 (01:13→20:25)
[2018-01-11] MEDS: ACCU-CHEK XX (01:31)
[2018-01-11] MEDS: DEXTROSE 5%-0.45% NACL 1,000 ML IV (04:19)
[2018-01-11 05:59] LABS: ALANINE AMINOTRANSFERASE 82 IU/L (13-69); ALBUMIN 3.1 g/dl (3.3-4.9); ALBUMIN/GLOBULIN RATIO 0.93; ALKALINE PHOSPHATASE 61 IU/L (42-121); ANION GAP 8 (5-13); ASPARTATE AMINO TRANSFERASE 116 IU/L (15-46); BILIRUBIN,INDIRECT 0.3 mg/dl (0-1.1); BILIRUBIN,TOTAL 0.3 mg/dl (0.2-1.3); BLOOD UREA NITROGEN 20 mg/dl (7-20); CALCIUM 8.8 mg/dl (8.4-10.2); CARBON DIOXIDE 29 mmol/L (21-31); CHLORIDE 112 mmol/L (97-110); CREATININE 0.88 mg/dl (0.61-1.24); GLUCOSE 256 mg/dl (70-220); MAGNESIUM 1.9 mg/dl (1.7-2.5); POTASSIUM 3.1 mmol/L (3.5-5.1); SODIUM 149 mmol/L (135-144); TOTAL PROTEIN 6.4 g/dl (6.1-8.1)
[2018-01-11] MEDS: DUTASTERIDE 0.5 MG CAP PO (08:49)
[2018-01-11] MEDS: ASPIRIN 81 MG TAB PO (08:49)
[2018-01-11] MEDS: CEFTRIAXONE 1 GM/50 ML (PMX) 50 ML IVPB ×2 (08:49→22:47)
[2018-01-11] MEDS: ENTACAPONE 200 MG TAB PO ×3 (08:49→20:27)
[2018-01-11] MEDS: METOPROLOL (XL) 25 MG TAB PO (08:50)
[2018-01-11] MEDS: LOSARTAN 25 MG TAB PO (08:50)
[2018-01-11] MEDS: RIVAROXABAN 20 MG TABLET PO (08:52)
[2018-01-11] MEDS ORDERED: POTASSIUM CHLORIDE 20 MEQ POWDER FOR ORAL SOLN PO (14:30)
[2018-01-11] MEDS ORDERED: POTASSIUM CHLORIDE 20 MEQ POWDER FOR ORAL SOLN (15:15)
[2018-01-11] MEDS ORDERED: DOCUSATE SODIUM 10 MG/ML (10ML CUP) (15:21)
[2018-01-11] MEDS: POTASSIUM CHLORIDE 20 MEQ POWDER FOR ORAL SOLN PO ×2 (15:23→20:27)
[2018-01-11] MEDS: DOCUSATE SODIUM 10 MG/ML (10ML CUP) PO (15:23)
[2018-01-11] MEDS: ENOXAPARIN 30 MG/0.3 ML SYG SC (15:30)
[2018-01-11] MEDS: MAGNESIUM SULFATE 1 GM/D5W 50 ML IVPB ×2 (16:57→20:18)
[2018-01-11] MEDS: INSULIN GLARGINE [LANTus] (100 UNITS/ML) SYG SC (20:25)
[2018-01-11] MEDS: TAMSULOSIN (SR) 0.4 MG CAP PO (20:27)
[2018-01-11] MEDS: PRAMIPEXOLE 0.125 MG TAB PO (20:27)
[2018-01-12] MEDS: INSULIN ASPART [NOVOLOG] 3 ML PEN SC ×9 (01:13→21:00)
[2018-01-12] MEDS: ACCU-CHEK XX (02:00)
[2018-01-12 05:31] LABS: ADD MAN DIFF? NO
[2018-01-12 05:38] LABS: BASOPHILS % 0.2 % (0.0-2.0); EOSINOPHILS # 0.2 10^3/ul (0.0-0.5); EOSINOPHILS % 1.8 % (0.0-7.0); HEMATOCRIT 31.3 % (42.0-52.0); HEMOGLOBIN 10.1 g/dl (14.0-18.0); LYMPHOCYTES # 2.3 10^3/ul (0.8-2.9); MEAN CORPUSCULAR HEMOGLOBIN 29.3 pg (29.0-33.0); MEAN CORPUSCULAR HGB CONC 32.3 g/dl (32.0-37.0); MEAN CORPUSCULAR VOLUME 90.7 fl (82.0-101.0); MEAN PLATELET VOLUME 9.5 fl (7.4-10.4); MONOCYTES % 10.7 % (0.0-11.0); NEUTROPHIL # 5.7 10^3/ul (1.6-7.5); NEUTROPHILS % 60.8 % (39.0-77.0); PLATELET COUNT 252 10^3/UL (140-415); RED BLOOD COUNT 3.45 10^6/ul (4.70-6.10); RED CELL DISTRIBUTION WIDTH 14.2 % (11.5-14.5)
[2018-01-12 05:38] LABS: WHITE BLOOD COUNT 9.3 10^3/ul (4.8-10.8)
[2018-01-12 06:26] LABS: ANION GAP 15 (5-13); BLOOD UREA NITROGEN 20 mg/dl (7-20); CALCIUM 8.7 mg/dl (8.4-10.2); CARBON DIOXIDE 31 mmol/L (21-31); CHLORIDE 111 mmol/L (97-110); CREATININE 0.76 mg/dl (0.61-1.24); GLUCOSE 229 mg/dl (70-220); MAGNESIUM 2.2 mg/dl (1.7-2.5); PHOSPHORUS 2.7 mg/dl (2.5-4.9); POTASSIUM 3.7 mmol/L (3.5-5.1); SODIUM 157 mmol/L (135-144)
[2018-01-12] MEDS: DEXTROSE 5%-0.45% NACL 1,000 ML IV (07:19)
[2018-01-12] MEDS: DOCUSATE SODIUM 10 MG/ML (10ML CUP) PO (09:38)
[2018-01-12] MEDS: CEFTRIAXONE 1 GM/50 ML (PMX) 50 ML IVPB ×2 (09:38→21:03)
[2018-01-12] MEDS: POTASSIUM CHLORIDE 20 MEQ POWDER FOR ORAL SOLN PO ×2 (09:39→21:03)
[2018-01-12] MEDS: DUTASTERIDE 0.5 MG CAP PO (09:39)
[2018-01-12] MEDS: ENTACAPONE 200 MG TAB PO ×3 (09:39→21:02)
[2018-01-12] MEDS: RIVAROXABAN 20 MG TABLET PO (09:39)
[2018-01-12] MEDS: ASPIRIN 81 MG TAB PO (09:39)
[2018-01-12] MEDS: METOPROLOL (XL) 25 MG TAB PO (09:40)
[2018-01-12] MEDS: LOSARTAN 25 MG TAB PO (09:41)
[2018-01-12] MEDS: ENOXAPARIN 30 MG/0.3 ML SYG SC (09:53)
[2018-01-12] MEDS: DEXTROSE 5% 1,000 ML IV ×2 (14:37→19:40)
[2018-01-12] MEDS: INSULIN GLARGINE [LANTus] (100 UNITS/ML) SYG SC ×2 (15:15→21:01)
[2018-01-12] MEDS: PRAMIPEXOLE 0.125 MG TAB PO (21:02)
[2018-01-12] MEDS: TAMSULOSIN (SR) 0.4 MG CAP PO (21:02)
[2018-01-12 23:44] LABS: ANION GAP 5 (5-13); BLOOD UREA NITROGEN 15 mg/dl (7-20); CALCIUM 8.6 mg/dl (8.4-10.2); CARBON DIOXIDE 31 mmol/L (21-31); CHLORIDE 106 mmol/L (97-110); CREATININE 0.63 mg/dl (0.61-1.24); GLUCOSE 258 mg/dl (70-220); POTASSIUM 3.4 mmol/L (3.5-5.1); SODIUM 142 mmol/L (135-144)
[2018-01-13] MEDS: POTASSIUM CHLORIDE (SR) 20 MEQ TAB PO (01:06)
[2018-01-13] MEDS: ACCU-CHEK XX (01:54)
[2018-01-13 06:56] LABS: ANION GAP 5 (5-13); BLOOD UREA NITROGEN 13 mg/dl (7-20); CALCIUM 8.6 mg/dl (8.4-10.2); CARBON DIOXIDE 31 mmol/L (21-31); CHLORIDE 109 mmol/L (97-110); CREATININE 0.69 mg/dl (0.61-1.24); GLUCOSE 197 mg/dl (70-220); MAGNESIUM 1.8 mg/dl (1.7-2.5); POTASSIUM 3.4 mmol/L (3.5-5.1); SODIUM 145 mmol/L (135-144)
[2018-01-13] MEDS: INSULIN ASPART [NOVOLOG] 3 ML PEN SC ×7 (08:25→20:49)
[2018-01-13] MEDS: DOCUSATE SODIUM 10 MG/ML (10ML CUP) PO (08:26)
[2018-01-13] MEDS: ENTACAPONE 200 MG TAB PO ×3 (08:26→20:45)
[2018-01-13] MEDS: RIVAROXABAN 20 MG TABLET PO (08:26)
[2018-01-13] MEDS: DUTASTERIDE 0.5 MG CAP PO ×2 (08:26→08:41)
[2018-01-13] MEDS: POTASSIUM CHLORIDE 20 MEQ POWDER FOR ORAL SOLN PO ×2 (08:27→20:46)
[2018-01-13] MEDS: ASPIRIN 81 MG TAB PO (08:27)
[2018-01-13] MEDS: CEFTRIAXONE 1 GM/50 ML (PMX) 50 ML IVPB ×2 (08:27→20:45)
[2018-01-13] MEDS: METOPROLOL (XL) 25 MG TAB PO (08:29)
[2018-01-13] MEDS ORDERED: ENOXAPARIN 30 MG/0.3 ML SYG SC (09:00)
[2018-01-13] MEDS: LOSARTAN 25 MG TAB PO (09:30)
[2018-01-13] MEDS: TAMSULOSIN (SR) 0.4 MG CAP PO (20:46)
[2018-01-13] MEDS: PRAMIPEXOLE 0.125 MG TAB PO (20:46)
[2018-01-13] MEDS: INSULIN GLARGINE [LANTus] (100 UNITS/ML) SYG SC (20:48)
[2018-01-14] MEDS: ACCU-CHEK XX (02:00)
[2018-01-14] MEDS: INSULIN ASPART [NOVOLOG] 3 ML PEN SC ×7 (09:13→20:44)
[2018-01-14] MEDS: RIVAROXABAN 20 MG TABLET PO (09:14)
[2018-01-14] MEDS: CEFTRIAXONE 1 GM/50 ML (PMX) 50 ML IVPB ×2 (09:14→20:43)
[2018-01-14] MEDS: ASPIRIN 81 MG TAB PO (09:15)
[2018-01-14] MEDS: LOSARTAN 25 MG TAB PO (09:15)
[2018-01-14] MEDS: DOCUSATE SODIUM 10 MG/ML (10ML CUP) PO (09:15)
[2018-01-14] MEDS: DUTASTERIDE 0.5 MG CAP PO (09:15)
[2018-01-14] MEDS: ENTACAPONE 200 MG TAB PO ×3 (09:15→20:43)
[2018-01-14] MEDS: METOPROLOL (XL) 25 MG TAB PO (09:16)
[2018-01-14] MEDS: POTASSIUM CHLORIDE 20 MEQ POWDER FOR ORAL SOLN PO ×2 (09:16→20:43)
[2018-01-14] MEDS: TAMSULOSIN (SR) 0.4 MG CAP PO (20:43)
[2018-01-14] MEDS: PRAMIPEXOLE 0.125 MG TAB PO (20:43)
[2018-01-15] MEDS: ACCU-CHEK XX (02:00)
[2018-01-15 07:14] LABS: ADD MAN DIFF? NO
[2018-01-15 07:19] LABS: WHITE BLOOD COUNT 9.9 10^3/ul (4.8-10.8)
[2018-01-15 07:19] LABS: BASOPHILS % 0.4 % (0.0-2.0); EOSINOPHILS # 0.2 10^3/ul (0.0-0.5); EOSINOPHILS % 2.4 % (0.0-7.0); HEMATOCRIT 36.6 % (42.0-52.0); HEMOGLOBIN 11.8 g/dl (14.0-18.0); LYMPHOCYTES # 2.7 10^3/ul (0.8-2.9); LYMPHOCYTES % 27.3 % (15.0-51.0); MEAN CORPUSCULAR HEMOGLOBIN 29.2 pg (29.0-33.0); MEAN CORPUSCULAR HGB CONC 32.2 g/dl (32.0-37.0); MEAN CORPUSCULAR VOLUME 90.6 fl (82.0-101.0); MEAN PLATELET VOLUME 9.5 fl (7.4-10.4); MONOCYTE # 0.6 10^3/ul (0.3-0.9); MONOCYTES % 6.3 % (0.0-11.0); NEUTROPHIL # 6.1 10^3/ul (1.6-7.5); NEUTROPHILS % 61.7 % (39.0-77.0); PLATELET COUNT 298 10^3/UL (140-415); RED BLOOD COUNT 4.04 10^6/ul (4.70-6.10); RED CELL DISTRIBUTION WIDTH 13.8 % (11.5-14.5)
[2018-01-15 07:41] LABS: ANION GAP 7 (5-13); BLOOD UREA NITROGEN 16 mg/dl (7-20); CALCIUM 9.1 mg/dl (8.4-10.2); CARBON DIOXIDE 29 mmol/L (21-31); CHLORIDE 105 mmol/L (97-110); CREATININE 0.76 mg/dl (0.61-1.24); GLUCOSE 215 mg/dl (70-220); MAGNESIUM 1.9 mg/dl (1.7-2.5); POTASSIUM 4.3 mmol/L (3.5-5.1); SODIUM 141 mmol/L (135-144)
[2018-01-15] MEDS: INSULIN ASPART [NOVOLOG] 3 ML PEN SC ×7 (08:02→20:56)
[2018-01-15] MEDS: RIVAROXABAN 20 MG TABLET PO (08:03)
[2018-01-15] MEDS: DUTASTERIDE 0.5 MG CAP PO (08:04)
[2018-01-15] MEDS: POTASSIUM CHLORIDE 20 MEQ POWDER FOR ORAL SOLN PO ×2 (08:04→20:47)
[2018-01-15] MEDS: ENTACAPONE 200 MG TAB PO ×3 (08:04→20:48)
[2018-01-15] MEDS: ASPIRIN 81 MG TAB PO (08:04)
[2018-01-15] MEDS: DOCUSATE SODIUM 10 MG/ML (10ML CUP) PO (08:04)
[2018-01-15] MEDS: METOPROLOL (XL) 25 MG TAB PO (08:05)
[2018-01-15] MEDS: LOSARTAN 25 MG TAB PO (08:06)
[2018-01-15] MEDS: CEFTRIAXONE 1 GM/50 ML (PMX) 50 ML IVPB ×2 (09:21→20:37)
[2018-01-15] MEDS: TAMSULOSIN (SR) 0.4 MG CAP PO (20:48)
[2018-01-15] MEDS: INSULIN GLARGINE [LANTus] (100 UNITS/ML) SYG SC (20:59)
[2018-01-15] MEDS: PRAMIPEXOLE 0.125 MG TAB PO (21:03)
[2018-01-16] MEDS: ACCU-CHEK XX (02:00)
[2018-01-16] MEDS: INSULIN ASPART [NOVOLOG] 3 ML PEN SC ×4 (08:20→11:50)
[2018-01-16] MEDS: CEFTRIAXONE 1 GM/50 ML (PMX) 50 ML IVPB (08:22)
[2018-01-16] MEDS: RIVAROXABAN 20 MG TABLET PO (08:22)
[2018-01-16] MEDS: DOCUSATE SODIUM 10 MG/ML (10ML CUP) PO (08:24)
[2018-01-16] MEDS: ASPIRIN 81 MG TAB PO (08:27)
[2018-01-16] MEDS: ENTACAPONE 200 MG TAB PO ×2 (08:27→12:29)
[2018-01-16] MEDS: DUTASTERIDE 0.5 MG CAP PO (08:27)
[2018-01-16] MEDS: LOSARTAN 25 MG TAB PO (08:27)
[2018-01-16] MEDS: POTASSIUM CHLORIDE 20 MEQ POWDER FOR ORAL SOLN PO (08:27)
[2018-01-16] MEDS: METOPROLOL (XL) 25 MG TAB PO (08:28)
[2018-01-16 11:24] LABS: ADD MAN DIFF? NO
[2018-01-16 11:27] LABS: BASOPHILS % 0.3 % (0.0-2.0); EOSINOPHILS # 0.2 10^3/ul (0.0-0.5); EOSINOPHILS % 1.6 % (0.0-7.0); HEMATOCRIT 34.3 % (42.0-52.0); HEMOGLOBIN 11.1 g/dl (14.0-18.0); LYMPHOCYTES # 2.8 10^3/ul (0.8-2.9); LYMPHOCYTES % 20.8 % (15.0-51.0); MEAN CORPUSCULAR HGB CONC 32.4 g/dl (32.0-37.0); MEAN CORPUSCULAR VOLUME 89.6 fl (82.0-101.0); MEAN PLATELET VOLUME 9.6 fl (7.4-10.4); MONOCYTE # 0.8 10^3/ul (0.3-0.9); MONOCYTES % 5.8 % (0.0-11.0); NEUTROPHIL # 9.4 10^3/ul (1.6-7.5); NEUTROPHILS % 69.9 % (39.0-77.0); PLATELET COUNT 301 10^3/UL (140-415); RED BLOOD COUNT 3.83 10^6/ul (4.70-6.10); RED CELL DISTRIBUTION WIDTH 14.3 % (11.5-14.5)
[2018-01-16 11:27] LABS: WHITE BLOOD COUNT 13.4 10^3/ul (4.8-10.8)
[2018-01-16 11:54] LABS: ANION GAP 9 (5-13); BLOOD UREA NITROGEN 18 mg/dl (7-20); CARBON DIOXIDE 25 mmol/L (21-31); CHLORIDE 109 mmol/L (97-110); CREATININE 0.79 mg/dl (0.61-1.24); GLUCOSE 201 mg/dl (70-220); POTASSIUM 4.8 mmol/L (3.5-5.1); SODIUM 143 mmol/L (135-144)
[2018-01-16 11:55] LABS: MAGNESIUM 1.9 mg/dl (1.7-2.5)
[2018-01-16 11:55] LABS: PHOSPHORUS 3.8 mg/dl (2.5-4.9)
== END 2018-01-16 15:35 | disposition home health service (06) | DRG 871 ==
LOC: PP2 01-12 18:32 → E/R 17:21 → PP2 01-12 18:40 → 6WM 20:04
DX: A41.59 Other Gram-negative sepsis (principal); I21.A1 Myocardial infarction type 2; G92 Toxic encephalopathy; N39.0 Urinary tract infection, site not specified; I47.2 Ventricular tachycardia; I42.9 Cardiomyopathy, unspecified; E87.0 Hyperosmolality and hypernatremia; R65.20 Severe sepsis without septic shock; G20 Parkinson's disease; N40.0 Benign prostatic hyperplasia without lower urinary tract symptoms; F02.80 Dementia in other diseases classified elsewhere, unspecified severity, without behavioral disturbance, psychotic disturbance, mood disturbance, and anxiety; I48.0 Paroxysmal atrial fibrillation; E11.9 Type 2 diabetes mellitus without complications; R13.10 Dysphagia, unspecified; R62.7 Adult failure to thrive; D63.8 Anemia in other chronic diseases classified elsewhere
CPT/HCPCS: 36415; 70450; 70551; 71045; 80048; 80053; 80162; 81001; 82550; 82553; 82607; 82746; 82962; 83036; 83605; 83735; 84100; 84443; 84484; 85025; 85610; 85730; 86592; 87040; 87086; 90686; 92526; 92610; 93005; 93306; 96374; 96375; 97110; 97116; 97162; 97166; 97530; 97535; 99291-25

== ENCOUNTER 2018-04-23 17:01 | Inpatient (IN) | payer MEDICARE, OTHER ==
[~2018-04-23 17:01] MED LIST changes: +ROCURONIUM 50 MG INJ; -SUCCINYLCHOLINE CHLORIDE 100 MG/5 ML SYG IV
[2018-04-23] MEDS ORDERED: PROPOFOL 100 ML (17:39)
[2018-04-23 17:56] LABS: ADD MAN DIFF? NO
[2018-04-23 18:07] LABS: BASOPHILS % 0.2 % (0.0-2.0); EOSINOPHILS # 0.2 10^3/ul (0.0-0.5); EOSINOPHILS % 0.9 % (0.0-7.0); HEMOGLOBIN 13.3 g/dl (14.0-18.0); LYMPHOCYTES # 2.2 10^3/ul (0.8-2.9); LYMPHOCYTES % 9.5 % (15.0-51.0); MEAN CORPUSCULAR HEMOGLOBIN 29.1 pg (29.0-33.0); MEAN CORPUSCULAR HGB CONC 33.3 g/dl (32.0-37.0); MEAN CORPUSCULAR VOLUME 87.5 fl (82.0-101.0); MEAN PLATELET VOLUME 9.3 fl (7.4-10.4); MONOCYTES % 4.5 % (0.0-11.0); NEUTROPHIL # 19.3 10^3/ul (1.6-7.5); NEUTROPHILS % 83.9 % (39.0-77.0); PLATELET COUNT 394 10^3/UL (140-415); RED BLOOD COUNT 4.57 10^6/ul (4.70-6.10); RED CELL DISTRIBUTION WIDTH 13.5 % (11.5-14.5)
[2018-04-23 18:09] LABS: Allen Test ACCEPTAB; Arterial Base Excess -5.1 mmol/L (-3.0-3); Arterial Blood Gas Oxygen Sat 99.2 mmHG (95.0-100.0); Arterial COHb 0.3 % (0.0-3.0); Arterial Fraction of Oxyhgb 98.4 % (93.0-99.0); Arterial HCO3 19.1 mmol/L (22.0-26.0); Arterial MetHb 0.5 % (0.0-1.5); Arterial pCO2 33.2 mmhg (35-45); Blood Gas Low PEEP Setting 0 cmH2O; MODE VENT - AC; Site Right Radial
[2018-04-23] MEDS: SOD CHLORIDE 0.9% 2,100 ML IV (18:17)
[2018-04-23 18:22] LABS: INR 1.54; PROTIME 18.6 Sec (11.9-14.9); PT RATIO 1.5
[2018-04-23 18:23] LABS: PARTIAL THROMBOPLASTIN TIME 39.6 Sec (23.0-35.0)
[2018-04-23 18:24] LABS: ALANINE AMINOTRANSFERASE 15 IU/L (13-69); ALBUMIN 4.2 g/dl (3.3-4.9); ALKALINE PHOSPHATASE 62 IU/L (42-121); ANION GAP 20 (5-13); ASPARTATE AMINO TRANSFERASE 35 IU/L (15-46); BILIRUBIN,INDIRECT 0.4 mg/dl (0-1.1); BILIRUBIN,TOTAL 0.4 mg/dl (0.2-1.3); BLOOD UREA NITROGEN 15 mg/dl (7-20); CALCIUM 9.3 mg/dl (8.4-10.2); CARBON DIOXIDE 22 mmol/L (21-31); CHLORIDE 95 mmol/L (97-110); CREATININE 0.94 mg/dl (0.61-1.24); GLUCOSE 292 mg/dl (70-220); POTASSIUM 4.8 mmol/L (3.5-5.1); SODIUM 137 mmol/L (135-144); TOTAL PROTEIN 8.4 g/dl (6.1-8.1)
[2018-04-23] MEDS: PROPOFOL 100 ML IV (18:30)
[2018-04-23] MEDS: PIPER-TAZO 3.375 GM IV (PMX) 100 ML IVPB (18:32)
[2018-04-23 18:38] LABS: TROPONIN-I 0.534 ng/ml (0.000-0.120)
[2018-04-23 19:03] LABS: ADD UMIC YES; UR ASCORBIC ACID NEGATIVE (NEGATIVE); UR BILIRUBIN (Dip) NEGATIVE (NEGATIVE); UR BLOOD (Dip) 2+ mg/dL (NEGATIVE); UR CLARITY CLOUDY (CLEAR); UR COLOR YELLOW (YELLOW); UR GLUCOSE (Dip) 3+ mg/dL (NEGATIVE); UR KETONES (Dip) TRACE mg/dL (NEGATIVE); UR LEUKOCYTE ESTERASE (Dip) 3+ Leu/ul (NEGATIVE); UR NITRITE (Dip) NEGATIVE (NEGATIVE); UR NONSQUAMOUS EPITHELIAL CELL 2 /HPF (NONE SEEN); UR RBC 173 /HPF (0-5); UR SPECIFIC GRAVITY (Dip) 1.017 (1.003-1.030); UR TOTAL PROTEIN (Dip) 3+ mg/dl (NEGATIVE); UR UROBILINOGEN (Dip) NEGATIVE (NEGATIVE); UR WBC > 182 /HPF (0-5)
[2018-04-23] MEDS: VANCOMYCIN 1 GM (PMX) 250 ML IVPB (19:35)
[2018-04-23] MEDS ORDERED: ALBUTEROL HFA 8 GM INHALER INH (20:00)
[2018-04-23] MEDS ORDERED: IPRATROPIUM (HFA) 12.9 GM INHALER INH (20:00)
[2018-04-23] MEDS ORDERED: NORepinephrine 8MG/250 ML (PMX 250 ML IV (20:00)
[2018-04-23] MEDS ORDERED: VANCOMYCIN IV PER PHARMACY XX (20:00)
[2018-04-23] MEDS: NORepinephrine 8MG/250 ML (PMX 250 ML IV (20:35)
[2018-04-23] MEDS: SOD CHLORIDE 0.9% 1,000 ML IV (21:16)
[2018-04-23 21:39] LABS: CREATINE KINASE 156 IU/L (23-200)
[2018-04-23 21:53] LABS: CK INDEX 2.1
[2018-04-23 21:59] LABS: CK-MB 3.21 ng/ml (0.0-2.4)
[2018-04-23] MEDS: ACETAMINOPHEN 650MG/20.3ML CUP PO (22:59)
[2018-04-23] MEDS: AZTREONAM 1 GM/NS (PMX) 50 ML IVPB (23:33)
[2018-04-23] MEDS: ENOXAPARIN 80 MG/0.8 ML SYG SC (23:43)
[2018-04-24] MEDS ORDERED: LORAZEPAM 2 MG INJ IM
[2018-04-24] MEDS ORDERED: FENTAnyl (DRIP) 1000 mcg/100mL 100 ML IV
[2018-04-24 00:10] LABS: LACTIC ACID 1.4 mmol/L (0.5-2.0)
[2018-04-24] MEDS: FENTAnyl (DRIP) 1000 mcg/100mL 100 ML IV (03:03)
[2018-04-24 03:08] LABS: CREATINE KINASE 458 IU/L (23-200)
[2018-04-24 03:19] LABS: CK INDEX 1.3
[2018-04-24 03:20] LABS: CK-MB 5.75 ng/ml (0.0-2.4)
[2018-04-24] MEDS: SOD CHLORIDE 0.9% 1,000 ML IV ×3 (04:02→23:59)
[2018-04-24] MEDS: VANCOMYCIN 1 GM 250 ML IVPB ×2 (05:10→17:52)
[2018-04-24] MEDS: PANTOPRAZOLE 40 MG INJ IV (05:10)
[2018-04-24 05:24] LABS: ADD MAN DIFF? NO
[2018-04-24 05:35] LABS: WHITE BLOOD COUNT 17.6 10^3/ul (4.8-10.8)
[2018-04-24 05:35] LABS: BASOPHIL # 0.1 10^3/ul (0.0-0.1); BASOPHILS % 0.3 % (0.0-2.0); EOSINOPHILS # 0.1 10^3/ul (0.0-0.5); EOSINOPHILS % 0.3 % (0.0-7.0); HEMATOCRIT 28.6 % (42.0-52.0); HEMOGLOBIN 9.7 g/dl (14.0-18.0); LYMPHOCYTES # 3.3 10^3/ul (0.8-2.9); LYMPHOCYTES % 18.6 % (15.0-51.0); MEAN CORPUSCULAR HEMOGLOBIN 29.1 pg (29.0-33.0); MEAN CORPUSCULAR HGB CONC 33.9 g/dl (32.0-37.0); MEAN CORPUSCULAR VOLUME 85.9 fl (82.0-101.0); MEAN PLATELET VOLUME 9.4 fl (7.4-10.4); MONOCYTE # 1.3 10^3/ul (0.3-0.9); MONOCYTES % 7.4 % (0.0-11.0); NEUTROPHIL # 12.7 10^3/ul (1.6-7.5); NEUTROPHILS % 72.3 % (39.0-77.0); PLATELET COUNT 300 10^3/UL (140-415); RED BLOOD COUNT 3.33 10^6/ul (4.70-6.10); RED CELL DISTRIBUTION WIDTH 13.6 % (11.5-14.5)
[2018-04-24 05:51] LABS: ALANINE AMINOTRANSFERASE 25 IU/L (13-69); ALBUMIN 3.1 g/dl (3.3-4.9); ALBUMIN/GLOBULIN RATIO 0.96; ALKALINE PHOSPHATASE 49 IU/L (42-121); ANION GAP 13 (5-13); ASPARTATE AMINO TRANSFERASE 32 IU/L (15-46); BILIRUBIN,INDIRECT 0.3 mg/dl (0-1.1); BILIRUBIN,TOTAL 0.3 mg/dl (0.2-1.3); BLOOD UREA NITROGEN 13 mg/dl (7-20); CALCIUM 8.3 mg/dl (8.4-10.2); CARBON DIOXIDE 21 mmol/L (21-31); CHLORIDE 106 mmol/L (97-110); CHOL/HDL RATIO 5.4 RATIO; CHOLESTEROL 142 mg/dl (100-200); CREATININE 0.83 mg/dl (0.61-1.24); GLUCOSE 232 mg/dl (70-220); HDL CHOLESTEROL 26 mg/dl (31-75); LDL CHOLESTEROL,CALCULATED 90 mg/dl; MAGNESIUM 1.5 mg/dl (1.7-2.5); POTASSIUM 3.6 mmol/L (3.5-5.1); SODIUM 140 mmol/L (135-144); TOTAL PROTEIN 6.3 g/dl (6.1-8.1); TRIGLYCERIDES 128 mg/dl (0-149)
[2018-04-24 05:56] LABS: LACTIC ACID 1.3 mmol/L (0.5-2.0)
[2018-04-24 05:57] LABS: HEMOGLOBIN A1C 6.9 % (0-5.9)
[2018-04-24] MEDS ORDERED: GLUCAGON 1 MG INJ IM (07:00)
[2018-04-24] MEDS ORDERED: GLUCOSE GEL 15 GRAM TUBE BUCCAL (07:00)
[2018-04-24] MEDS ORDERED: GLUCOSE GEL 15 GRAM TUBE PO ×2 (07:00)
[2018-04-24] MEDS ORDERED: DEXTROSE 50% 50 ML SYRINGE IV ×2 (07:00)
[2018-04-24 08:48] LABS: CREATINE KINASE 452 IU/L (23-200)
[2018-04-24] MEDS: AZTREONAM 1 GM/NS (PMX) 50 ML IVPB ×2 (08:57→20:58)
[2018-04-24 08:59] LABS: CK INDEX 1.2
[2018-04-24] MEDS: DUTASTERIDE 0.5 MG CAP PO (09:00)
[2018-04-24] MEDS: PROPRANOLOL 20 MG TAB PO (09:05)
[2018-04-24 09:11] LABS: CK-MB 5.21 ng/ml (0.0-2.4)
[2018-04-24] MEDS: ENOXAPARIN 80 MG/0.8 ML SYG SC ×2 (09:33→21:01)
[2018-04-24] MEDS: INSULIN ASPART [NOVOLOG] 3 ML PEN SC ×4 (09:34→21:00)
[2018-04-24] MEDS: MAGNESIUM SULFATE 3 GM in DEXTROSE 5% 100 ML IVPB (10:35)
[2018-04-24] MEDS: DIGOXIN 0.25 MG TAB PO (13:00)
[2018-04-24] MEDS: ASPIRIN 81 MG TAB PO (17:00)
[2018-04-24] MEDS ORDERED: ASPIRIN 300 MG SUPP PR (19:00)
[2018-04-24] MEDS: ATORVASTATIN 40 MG TAB PO (21:00)
[2018-04-24] MEDS: ASPIRIN 300 MG SUPP PR (21:05)
[2018-04-25] MEDS: INSULIN ASPART [NOVOLOG] 3 ML PEN SC ×6 (01:00→20:20)
[2018-04-25 04:23] LABS: ADD MAN DIFF? NO
[2018-04-25 04:26] LABS: WHITE BLOOD COUNT 12.6 10^3/ul (4.8-10.8)
[2018-04-25 04:27] LABS: BASOPHILS % 0.2 % (0.0-2.0); EOSINOPHILS # 0.4 10^3/ul (0.0-0.5); EOSINOPHILS % 2.8 % (0.0-7.0); HEMATOCRIT 27.7 % (42.0-52.0); LYMPHOCYTES # 2.1 10^3/ul (0.8-2.9); LYMPHOCYTES % 16.9 % (15.0-51.0); MEAN CORPUSCULAR HEMOGLOBIN 28.8 pg (29.0-33.0); MEAN CORPUSCULAR HGB CONC 32.5 g/dl (32.0-37.0); MEAN CORPUSCULAR VOLUME 88.8 fl (82.0-101.0); MEAN PLATELET VOLUME 9.1 fl (7.4-10.4); MONOCYTE # 1.1 10^3/ul (0.3-0.9); MONOCYTES % 8.3 % (0.0-11.0); NEUTROPHILS % 70.9 % (39.0-77.0); PLATELET COUNT 250 10^3/UL (140-415); RED BLOOD COUNT 3.12 10^6/ul (4.70-6.10); RED CELL DISTRIBUTION WIDTH 13.8 % (11.5-14.5)
[2018-04-25 04:47] LABS: ALANINE AMINOTRANSFERASE 20 IU/L (13-69); ALBUMIN 3.1 g/dl (3.3-4.9); ALBUMIN/GLOBULIN RATIO 0.96; ALKALINE PHOSPHATASE 48 IU/L (42-121); ANION GAP 9 (5-13); ASPARTATE AMINO TRANSFERASE 23 IU/L (15-46); BILIRUBIN,INDIRECT 0.3 mg/dl (0-1.1); BILIRUBIN,TOTAL 0.3 mg/dl (0.2-1.3); BLOOD UREA NITROGEN 8 mg/dl (7-20); CALCIUM 8.2 mg/dl (8.4-10.2); CARBON DIOXIDE 25 mmol/L (21-31); CHLORIDE 108 mmol/L (97-110); CREATININE 0.69 mg/dl (0.61-1.24); GLUCOSE 98 mg/dl (70-220); POTASSIUM 3.4 mmol/L (3.5-5.1); SODIUM 142 mmol/L (135-144); TOTAL PROTEIN 6.3 g/dl (6.1-8.1)
[2018-04-25] MEDS: VANCOMYCIN 1 GM 250 ML IVPB ×2 (05:53→18:22)
[2018-04-25] MEDS: DUTASTERIDE 0.5 MG CAP PO (09:00)
[2018-04-25] MEDS: FAMOTIDINE 20 MG INJ IV (09:17)
[2018-04-25] MEDS: AZTREONAM 1 GM/NS (PMX) 50 ML IVPB ×2 (09:17→20:22)
[2018-04-25] MEDS: ENOXAPARIN 80 MG/0.8 ML SYG SC ×2 (09:19→20:35)
[2018-04-25] MEDS: BALSAM PERU/CASTOR OIL 60 GM TUBE TOP ×2 (09:22→20:24)
[2018-04-25] MEDS: ASPIRIN 300 MG SUPP PR (09:31)
[2018-04-25] MEDS: POTASSIUM CHLORIDE 20 MEQ POWDER FOR ORAL SOLN PO (10:35)
[2018-04-25] MEDS: FLUCONAZOLE 100 MG TAB PO (14:21)
[2018-04-25] MEDS: ACETAMINOPHEN 650MG/20.3ML CUP PO ×2 (14:23→23:53)
[2018-04-25] MEDS: FUROSEMIDE 20 MG INJ IV (16:53)
[2018-04-25] MEDS: POTASSIUM CHLORIDE (SR) 20 MEQ TAB PO (16:56)
[2018-04-25] MEDS ORDERED: NITROGLYCERIN (SL) 0.4 MG TAB SL (17:00)
[2018-04-25] MEDS: MAGNESIUM SULFATE 2 GM/50 ML 50 ML IVPB (17:13)
[2018-04-25 17:45] LABS: VANCOMYCIN,TROUGH 14.5 ug/ml (10.0-20.0)
[2018-04-25 18:05] LABS: TROPONIN-I 0.561 ng/ml (0.000-0.120)
[2018-04-25] MEDS: SOD CHLORIDE 0.9% 1,000 ML IV (18:23)
[2018-04-25] MEDS: ATORVASTATIN 40 MG TAB PO (20:20)
[2018-04-25] MEDS: METOPROLOL 25 MG TAB PO (20:21)
[2018-04-25] MEDS: FAMOTIDINE 20 MG TAB PO (20:22)
[2018-04-26 00:13] LABS: TROPONIN-I 0.506 ng/ml (0.000-0.120)
[2018-04-26] MEDS: INSULIN ASPART [NOVOLOG] 3 ML PEN SC ×6 (01:12→20:48)
[2018-04-26 05:15] LABS: ADD MAN DIFF? NO
[2018-04-26 05:21] LABS: BASOPHILS % 0.3 % (0.0-2.0); EOSINOPHILS # 0.4 10^3/ul (0.0-0.5); EOSINOPHILS % 3.4 % (0.0-7.0); HEMATOCRIT 26.9 % (42.0-52.0); HEMOGLOBIN 9.1 g/dl (14.0-18.0); LYMPHOCYTES # 2.1 10^3/ul (0.8-2.9); LYMPHOCYTES % 19.7 % (15.0-51.0); MEAN CORPUSCULAR HEMOGLOBIN 29.4 pg (29.0-33.0); MEAN CORPUSCULAR HGB CONC 33.8 g/dl (32.0-37.0); MEAN CORPUSCULAR VOLUME 86.8 fl (82.0-101.0); MEAN PLATELET VOLUME 9.1 fl (7.4-10.4); MONOCYTE # 1.1 10^3/ul (0.3-0.9); MONOCYTES % 9.9 % (0.0-11.0); NEUTROPHILS % 66.1 % (39.0-77.0); PLATELET COUNT 261 10^3/UL (140-415); RED CELL DISTRIBUTION WIDTH 13.4 % (11.5-14.5)
[2018-04-26 05:21] LABS: WHITE BLOOD COUNT 10.6 10^3/ul (4.8-10.8)
[2018-04-26] MEDS: VANCOMYCIN 1 GM 250 ML IVPB (05:27)
[2018-04-26] MEDS: SOD CHLORIDE 0.9% 1,000 ML IV ×2 (05:29→17:23)
[2018-04-26 05:53] LABS: ALANINE AMINOTRANSFERASE 17 IU/L (13-69); ALBUMIN 3.1 g/dl (3.3-4.9); ALBUMIN/GLOBULIN RATIO 0.96; ALKALINE PHOSPHATASE 53 IU/L (42-121); ANION GAP 7 (5-13); ASPARTATE AMINO TRANSFERASE 25 IU/L (15-46); BILIRUBIN,INDIRECT 0.3 mg/dl (0-1.1); BILIRUBIN,TOTAL 0.3 mg/dl (0.2-1.3); BLOOD UREA NITROGEN 7 mg/dl (7-20); CALCIUM 8.5 mg/dl (8.4-10.2); CARBON DIOXIDE 25 mmol/L (21-31); CHLORIDE 108 mmol/L (97-110); CREATININE 0.69 mg/dl (0.61-1.24); GLUCOSE 123 mg/dl (70-220); POTASSIUM 3.7 mmol/L (3.5-5.1); SODIUM 140 mmol/L (135-144); TOTAL PROTEIN 6.3 g/dl (6.1-8.1)
[2018-04-26] MEDS: FAMOTIDINE 20 MG TAB PO ×2 (10:17→20:40)
[2018-04-26] MEDS: DUTASTERIDE 0.5 MG CAP PO (10:17)
[2018-04-26] MEDS: ASPIRIN 300 MG SUPP PR (10:18)
[2018-04-26] MEDS: METOPROLOL 25 MG TAB PO ×2 (10:18→20:40)
[2018-04-26] MEDS: ENOXAPARIN 80 MG/0.8 ML SYG SC ×2 (10:19→20:48)
[2018-04-26] MEDS: BALSAM PERU/CASTOR OIL 60 GM TUBE TOP ×2 (10:20→20:41)
[2018-04-26 11:11] LABS: MAGNESIUM 2.2 mg/dl (1.7-2.5)
[2018-04-26] MEDS: AZTREONAM 1 GM/NS (PMX) 50 ML IVPB ×2 (11:32→20:39)
[2018-04-26] MEDS: FUROSEMIDE 20 MG INJ IV (14:13)
[2018-04-26] MEDS: POTASSIUM CHLORIDE (SR) 20 MEQ TAB PO (14:14)
[2018-04-26] MEDS: FLUCONAZOLE 100 MG TAB PO (14:22)
[2018-04-26] MEDS: ATORVASTATIN 40 MG TAB PO (20:40)
[2018-04-26] MEDS: ACETAMINOPHEN 650MG/20.3ML CUP PO (20:40)
[2018-04-27] MEDS: ACCU-CHEK XX (02:19)
[2018-04-27 06:04] LABS: ADD MAN DIFF? NO
[2018-04-27] MEDS: SOD CHLORIDE 0.9% 1,000 ML IV ×2 (06:09→20:36)
[2018-04-27 06:14] LABS: WHITE BLOOD COUNT 9.2 10^3/ul (4.8-10.8)
[2018-04-27 06:14] LABS: BASOPHILS % 0.3 % (0.0-2.0); EOSINOPHILS # 0.2 10^3/ul (0.0-0.5); EOSINOPHILS % 2.1 % (0.0-7.0); HEMATOCRIT 29.3 % (42.0-52.0); HEMOGLOBIN 9.9 g/dl (14.0-18.0); LYMPHOCYTES # 2.1 10^3/ul (0.8-2.9); LYMPHOCYTES % 22.5 % (15.0-51.0); MEAN CORPUSCULAR HEMOGLOBIN 29.4 pg (29.0-33.0); MEAN CORPUSCULAR HGB CONC 33.8 g/dl (32.0-37.0); MEAN CORPUSCULAR VOLUME 86.9 fl (82.0-101.0); MONOCYTE # 0.7 10^3/ul (0.3-0.9); NEUTROPHIL # 6.1 10^3/ul (1.6-7.5); NEUTROPHILS % 66.4 % (39.0-77.0); PLATELET COUNT 310 10^3/UL (140-415); RED BLOOD COUNT 3.37 10^6/ul (4.70-6.10); RED CELL DISTRIBUTION WIDTH 13.2 % (11.5-14.5)
[2018-04-27 07:21] LABS: ALANINE AMINOTRANSFERASE 22 IU/L (13-69); ALBUMIN 3.2 g/dl (3.3-4.9); ALBUMIN/GLOBULIN RATIO 0.94; ALKALINE PHOSPHATASE 53 IU/L (42-121); ANION GAP 12 (5-13); ASPARTATE AMINO TRANSFERASE 27 IU/L (15-46); BILIRUBIN,INDIRECT 0.3 mg/dl (0-1.1); BILIRUBIN,TOTAL 0.3 mg/dl (0.2-1.3); BLOOD UREA NITROGEN 9 mg/dl (7-20); CALCIUM 8.6 mg/dl (8.4-10.2); CARBON DIOXIDE 26 mmol/L (21-31); CHLORIDE 102 mmol/L (97-110); CREATININE 0.73 mg/dl (0.61-1.24); GLUCOSE 148 mg/dl (70-220); POTASSIUM 3.4 mmol/L (3.5-5.1); SODIUM 140 mmol/L (135-144); TOTAL PROTEIN 6.6 g/dl (6.1-8.1)
[2018-04-27] MEDS: FAMOTIDINE 20 MG TAB PO ×2 (08:08→20:34)
[2018-04-27] MEDS: DUTASTERIDE 0.5 MG CAP PO (08:08)
[2018-04-27] MEDS: FLUCONAZOLE 100 MG TAB PO (08:09)
[2018-04-27] MEDS: ASPIRIN 81 MG TAB PO (08:09)
[2018-04-27] MEDS: BALSAM PERU/CASTOR OIL 60 GM TUBE TOP ×2 (08:09→20:40)
[2018-04-27] MEDS: METOPROLOL 25 MG TAB PO ×2 (08:09→20:36)
[2018-04-27] MEDS: ENOXAPARIN 80 MG/0.8 ML SYG SC ×2 (08:21→20:33)
[2018-04-27] MEDS: INSULIN ASPART [NOVOLOG] 3 ML PEN SC ×4 (08:21→20:33)
[2018-04-27] MEDS: POTASSIUM CHLORIDE 20 MEQ POWDER FOR ORAL SOLN PO (10:24)
[2018-04-27] MEDS: AZTREONAM 1 GM/NS (PMX) 50 ML IVPB ×2 (10:25→20:39)
[2018-04-27] MEDS: ATORVASTATIN 40 MG TAB PO (20:34)
[2018-04-28] MEDS: ACCU-CHEK XX (02:04)
[2018-04-28] MEDS: SOD CHLORIDE 0.9% 1,000 ML IV ×2 (07:41→20:30)
[2018-04-28] MEDS: METOPROLOL 25 MG TAB PO ×2 (08:03→21:24)
[2018-04-28] MEDS: FAMOTIDINE 20 MG TAB PO ×2 (08:03→21:24)
[2018-04-28] MEDS: FLUCONAZOLE 100 MG TAB PO (08:03)
[2018-04-28] MEDS: AZTREONAM 1 GM/NS (PMX) 50 ML IVPB ×2 (08:03→21:24)
[2018-04-28] MEDS: ASPIRIN 81 MG TAB PO (08:03)
[2018-04-28] MEDS: DUTASTERIDE 0.5 MG CAP PO (08:03)
[2018-04-28] MEDS: BALSAM PERU/CASTOR OIL 60 GM TUBE TOP ×2 (08:04→21:35)
[2018-04-28] MEDS: INSULIN ASPART [NOVOLOG] 3 ML PEN SC ×4 (08:11→21:21)
[2018-04-28] MEDS: ENOXAPARIN 80 MG/0.8 ML SYG SC ×2 (08:12→21:31)
[2018-04-28] MEDS: BARIUM SULFATE 135 ML (E-Z HD) PO (11:08)
[2018-04-28] MEDS: PRAMIPEXOLE 0.125 MG TAB PO (14:24)
[2018-04-28] MEDS: ENTACAPONE 200 MG TAB PO ×2 (14:24→21:24)
[2018-04-28] MEDS: ATORVASTATIN 40 MG TAB PO (21:23)
[2018-04-28] MEDS: TAMSULOSIN (SR) 0.4 MG CAP PO (21:24)
[2018-04-29] MEDS: ACCU-CHEK XX (02:00)
[2018-04-29] MEDS: SOD CHLORIDE 0.9% 1,000 ML IV ×3 (06:42→21:30)
[2018-04-29 07:22] LABS: ADD MAN DIFF? NO
[2018-04-29 07:25] LABS: BASOPHILS % 0.4 % (0.0-2.0); EOSINOPHILS # 0.3 10^3/ul (0.0-0.5); EOSINOPHILS % 3.3 % (0.0-7.0); HEMATOCRIT 28.4 % (42.0-52.0); HEMOGLOBIN 9.7 g/dl (14.0-18.0); LYMPHOCYTES # 2.2 10^3/ul (0.8-2.9); LYMPHOCYTES % 27.4 % (15.0-51.0); MEAN CORPUSCULAR HEMOGLOBIN 29.4 pg (29.0-33.0); MEAN CORPUSCULAR HGB CONC 34.2 g/dl (32.0-37.0); MEAN CORPUSCULAR VOLUME 86.1 fl (82.0-101.0); MEAN PLATELET VOLUME 8.9 fl (7.4-10.4); MONOCYTE # 0.8 10^3/ul (0.3-0.9); MONOCYTES % 9.9 % (0.0-11.0); NEUTROPHIL # 4.8 10^3/ul (1.6-7.5); NEUTROPHILS % 58.5 % (39.0-77.0); PLATELET COUNT 305 10^3/UL (140-415); RED CELL DISTRIBUTION WIDTH 13.2 % (11.5-14.5)
[2018-04-29 07:25] LABS: WHITE BLOOD COUNT 8.2 10^3/ul (4.8-10.8)
[2018-04-29 07:48] LABS: ANION GAP 8 (5-13); BLOOD UREA NITROGEN 5 mg/dl (7-20); CARBON DIOXIDE 24 mmol/L (21-31); CHLORIDE 106 mmol/L (97-110); CREATININE 0.59 mg/dl (0.61-1.24); GLUCOSE 171 mg/dl (70-220); MAGNESIUM 1.6 mg/dl (1.7-2.5); PHOSPHORUS 3.5 mg/dl (2.5-4.9); POTASSIUM 3.5 mmol/L (3.5-5.1); SODIUM 138 mmol/L (135-144)
[2018-04-29] MEDS: INSULIN ASPART [NOVOLOG] 3 ML PEN SC ×4 (08:00→22:58)
[2018-04-29] MEDS ORDERED: PRAMIPEXOLE 0.125 MG TAB PO (09:00)
[2018-04-29] MEDS: AZTREONAM 1 GM/NS (PMX) 50 ML IVPB ×2 (09:54→21:00)
[2018-04-29] MEDS: BALSAM PERU/CASTOR OIL 60 GM TUBE TOP ×2 (09:55→21:00)
[2018-04-29] MEDS: ENOXAPARIN 80 MG/0.8 ML SYG SC ×2 (10:02→22:59)
[2018-04-29] MEDS: MAGNESIUM SULFATE 2 GM/50 ML 50 ML IVPB (11:40)
[2018-04-29] MEDS: METOPROLOL 25 MG TAB PO ×2 (11:40→23:00)
[2018-04-29] MEDS: FLUCONAZOLE 100 MG TAB PO (11:40)
[2018-04-29] MEDS: FAMOTIDINE 20 MG TAB PO ×2 (11:40→22:59)
[2018-04-29] MEDS: DUTASTERIDE 0.5 MG CAP PO (11:40)
[2018-04-29] MEDS: ENTACAPONE 200 MG TAB PO ×3 (11:41→22:59)
[2018-04-29] MEDS: PRAMIPEXOLE 0.125 MG TAB PO (11:41)
[2018-04-29] MEDS: ASPIRIN 81 MG TAB PO (11:45)
[2018-04-29] MEDS: TAMSULOSIN (SR) 0.4 MG CAP PO (22:59)
[2018-04-29] MEDS: ATORVASTATIN 40 MG TAB PO (22:59)
[2018-04-30] MEDS: BALSAM PERU/CASTOR OIL 60 GM TUBE TOP ×2 (00:25→08:45)
[2018-04-30] MEDS: ACCU-CHEK XX (02:00)
[2018-04-30] MEDS: SOD CHLORIDE 0.9% 1,000 ML IV (06:39)
[2018-04-30] MEDS: INSULIN ASPART [NOVOLOG] 3 ML PEN SC ×3 (08:41→17:40)
[2018-04-30] MEDS: ENOXAPARIN 80 MG/0.8 ML SYG SC (08:42)
[2018-04-30] MEDS: DUTASTERIDE 0.5 MG CAP PO (08:45)
[2018-04-30] MEDS: ASPIRIN 81 MG TAB PO (08:45)
[2018-04-30] MEDS: ENTACAPONE 200 MG TAB PO ×2 (08:45→12:38)
[2018-04-30] MEDS: FLUCONAZOLE 100 MG TAB PO (08:45)
[2018-04-30] MEDS: FAMOTIDINE 20 MG TAB PO (08:45)
[2018-04-30] MEDS: METOPROLOL 25 MG TAB PO (08:47)
[2018-04-30] MEDS: PRAMIPEXOLE 0.125 MG TAB PO (10:46)
== END 2018-04-30 19:22 | disposition home health service (06) | DRG 698 ==
LOC: TEL 04-26 14:47 → E/R 17:01 → PP2 04-29 04:03 → ICU 19:41
PROC: 5A1935Z Respiratory Ventilation, Less than 24 Consecutive Hours (ICD-10-PCS; principal; 2018-04-23)
PROC: 0BH17EZ Insertion of Endotracheal Airway into Trachea, Via Natural or Artificial Opening (ICD-10-PCS; 2018-04-23)
PROC: 02H633Z Insertion of Infusion Device into Right Atrium, Percutaneous Approach (ICD-10-PCS; 2018-04-23)
DX: T83.511A Infection and inflammatory reaction due to indwelling urethral catheter, initial encounter (principal); A41.9 Sepsis, unspecified organism; R65.21 Severe sepsis with septic shock; G93.41 Metabolic encephalopathy; I21.4 Non-ST elevation (NSTEMI) myocardial infarction; J96.01 Acute respiratory failure with hypoxia; B37.1 Pulmonary candidiasis; N13.8 Other obstructive and reflux uropathy; B37.49 Other urogenital candidiasis; I42.9 Cardiomyopathy, unspecified; Y73.2 Prosthetic and other implants, materials and accessory gastroenterology and urology devices associated with adverse incidents; G20 Parkinson's disease; I10 Essential (primary) hypertension; E11.9 Type 2 diabetes mellitus without complications; I25.10 Atherosclerotic heart disease of native coronary artery without angina pectoris; F02.80 Dementia in other diseases classified elsewhere, unspecified severity, without behavioral disturbance, psychotic disturbance, mood disturbance, and anxiety; I48.0 Paroxysmal atrial fibrillation; N40.1 Benign prostatic hyperplasia with lower urinary tract symptoms; D64.9 Anemia, unspecified; R13.10 Dysphagia, unspecified
CPT/HCPCS: 31500; 36415; 36600; 71045; 74230; 76937; 80048; 80053; 80061; 80202; 81001; 82306; 82550; 82553; 82803; 82962; 83036; 83605; 83735; 84100; 84443; 84484; 85025; 85610; 85730; 87040; 87070; 87081; 87086; 87400; 89220; 92526; 92610; 92611; 93005; 93306; 94002; 94003; 94770; 96374; 96375; 97110; 97162; 97530; 99291-25